=== PATIENT | female | born 1940 | race Caucasian/White ===

== ENCOUNTER 2021-06-05 19:03 | Emergency (ER) | payer MEDICARE ==
--- NOTE | 2021-06-05 20:44 | EDM.PDOC ---
ED HPI GENERAL MEDICAL PROBLEM - General Chief Complaint: Gastrointestinal Problem Stated Complaint: MELENA Time Seen by Provider: 06/05/21 20:10 Source of Information: Reports: Patient, Other (Friends) History Limitations: Reports: Other (Patient does have some dementia and is a difficult time with her history) - History of Present Illness INITIAL COMMENTS - FREE TEXT/NARRATIVE: 81-year-old female had a melanotic stool at [facility] so they called the ambulance. She has no abdominal pain, nausea or vomiting, weakness or other complaints. On arrival she had stool in the perineal area and abdomen because of the incontinent-like nature of the large bowel movement. A guaiac sample was taken, it did not smell melanotic or bloody. She has no other bowel movements while waiting for labs. No history of GI bleed in the past, she is unable to tell us if she had any Pepto-Bismol the last couple days. Onset: Sudden Duration: Hour(s): (Large melanotic loose stool 1 hour ago) Associated Symptoms: Reports: No Other Symptoms - Related Data Allergies Allergy/AdvReac Type Severity Reaction Status Date / Time Unable to Assess Allergy Unverified 06/05/21 20:25 Home Meds: Home Meds . [Unable to Verify Home Med List] 06/05/21 [History] Past Medical History HEENT History: Reports: Impaired Vision Social & Family History - Tobacco Use Tobacco Use Status *Q: Never Tobacco User - Caffeine Use Caffeine Use: Reports: Coffee - Recreational Drug Use Recreational Drug Use: No ED ROS GENERAL - Review of Systems Review Of Systems: See Below Constitutional: Denies: Fever, Chills Respiratory: Denies: Shortness of Breath Cardiovascular: Denies: Chest Pain GI/Abdominal: Reports: Melena. Denies: Abdominal Pain, Nausea, Vomiting Skin: Denies: Pallor Neurological: Reports: No Symptoms Psychiatric: Reports: No Symptoms ED EXAM, GENERAL - Physical Exam Exam: See Below Exam Limited By: No Limitations General Appearance: Alert, No Apparent Distress Eye Exam: Bilateral Eye: Normal Inspection Head: Atraumatic Respiratory/Chest: No Respiratory Distress, Lungs Clear Cardiovascular: Regular Rate, Rhythm GI/Abdominal: Normal Bowel Sounds, Soft, Non-Tender Extremities: Normal Inspection Neurological: Alert. No: Oriented (Some mild disorientation to time which is apparently common for her) Psychiatric: Normal Affect, Normal Mood Skin Exam: Warm, Dry Course - Vital Signs Last Recorded V/S: Last Vital Signs Temp 96.7 F L 06/05/21 19:12 Pulse 65 06/05/21 19:12 Resp 16 06/05/21 19:12 BP 151/64 H 06/05/21 19:12 Pulse Ox 98 06/05/21 19:12 - Orders/Labs/Meds Labs: Laboratory Tests 06/05/21 06/05/21 06/05/21 Range/Units 20:05 20:09 20:09 WBC 7.4 (4.5-11.0) K/uL RBC 3.80 (3.30-5.50) M/uL Hgb 10.4 L (12.0-15.0) g/dL Hct 34.1 L (36.0-48.0) % MCV 90 (80-98) fL MCH 27 (27-31) pg MCHC 31 L (32-36) % Plt Count 404 H (150-400) K/uL Neut % (Auto) 44.7 (36-66) % Lymph % (Auto) 41.9 (24-44) % [place] % (Auto) 10.4 H (2-6) % Eos % (Auto) 2.6 (2-4) % Baso % (Auto) 0.4 (0-1) % PT 9.5 (9.2-10.6) sec INR 0.9 Sodium 139 L (140-148) mmol/L Potassium 4.4 (3.6-5.2) mmol/L Chloride 101 (100-108) mmol/L Carbon Dioxide 29 (21-32) mmol/L Anion Gap 13.4 (5.0-14.0) mmol/L BUN 37 H (7-18) mg/dL Creatinine 1.3 H (0.6-1.0) mg/dL Est Cr Clr Drug Dosing 25.18 mL/min Estimated GFR (MDRD) 39 L (>60) Glucose 111 H (74-106) mg/dL Calcium 9.8 (8.5-10.1) mg/dL Total Bilirubin 0.2 (0.2-1.0) mg/dL AST 14 L (15-37) U/L ALT 21 (12-78) U/L Alkaline Phosphatase 108 (46-116) U/L Total Protein 7.0 (6.4-8.2) g/dL Albumin 3.3 L (3.4-5.0) g/dL Globulin 3.7 H (2.3-3.5) g/dL Albumin/Globulin Ratio 0.9 L (1.2-2.2) - Re-Assessments/Exams Free Text/Narrative Re-Assessment/Exam: 06/05/21 20:42 Stool guaiac was negative, hemoglobin was 10.4. Explained to the family that this cannot be caused by GI bleed and be guaiac negative. It is more likely related to something she ate or medication. If symptoms persist, hemoglobin can be rechecked in the next few days but no admission is needed. The rest of her labs returned and BUN was normal as well. Patient remained asymptomatic while in the emergency room. Departure - Departure Time of Disposition: 20:52 Disposition: DC/Tfer to [facility] Clinical Impression: Diarrhea - Discharge Information Instructions: Diarrhea, Adult Referrals: PCP,None [Primary Care Provider] - Forms: ED Department Discharge Care Plan Goals: Resume regular medications and activity as tolerated. Resume diet as tolerated, return if you develop pain, at persistent diarrheal stools, develop weakness or other concerns. If stools stay dark over the next 24 to 48 hours, a recheck of your stool and blood levels would be reasonable. Sepsis Event Note (ED) - Evaluation Sepsis Screening Result: No Definite Risk - Focused Exam Vital Signs: Vital Signs Temp Pulse Resp BP Pulse Ox 06/05/21 19:12 96.7 F L 65 16 151/64 H 98
== END 2021-06-05 20:59 ==
LOC: JP.ED 19:03
DX: R19.7 Diarrhea, unspecified (principal)
CPT/HCPCS: 36415; 80053; 82272; 85025; 85610; 99285

== ENCOUNTER 2022-09-06 21:22 | Emergency (ER) | payer BC, MEDICARE ==
[2022-09-07] MEDS ORDERED: Melatonin 3 MG Tab PO ONE (03:09)
== END 2022-09-07 08:23 ==
LOC: JP.ED 21:22
DX: Z04.3 Encounter for examination and observation following other accident (principal); G31.84 Mild cognitive impairment of uncertain or unknown etiology; I10 Essential (primary) hypertension; E03.9 Hypothyroidism, unspecified; Z79.899 Other long term (current) drug therapy; Z88.8 Allergy status to other drugs, medicaments and biological substances; W18.30XA Fall on same level, unspecified, initial encounter
CPT/HCPCS: 99285; A9270